=== PATIENT | female | born 1945 | race Caucasian/White ===

== ENCOUNTER → 2017-04-09 | Day surgery (SDC) | payer OTHER, MEDICARE ==
[~2017-04-09] VITALS: Ht 163.8 cm; Wt 58.9 kg
[~2017-04-09] MED LIST: 0.9% Sodium Chloride 1,000 ML IV PRN; ASPI-973 PO; Sodium Chloride LOK Flush 10 mL Syringe IV PRN; [UNRECOGNIZED DRUG - CODE] OP; fentaNYL-PF 50 mCg/mL 2 mL Inj IVPUSH PRN
[2017-04-09 10:23] VITALS: BP 139/82; PULSE 64; RESP 16; O2SAT 100
[2017-04-09 12:28] VITALS: BP 150/82; PULSE 52; RESP 12; O2SAT 100
[2017-04-09 12:37] VITALS: BP 140/74; PULSE 57; RESP 12; O2SAT 100
[2017-04-09 12:51] VITALS: BP 148/80; PULSE 67; RESP 12; O2SAT 100
--- NOTE | 2017-04-10 02:13 | ENDO ---
[address] [address] ENDOSCOPY PROCEDURE PATIENT: LEYDA VALLE : 1945 MR#: [id number] ADMIT: 04/09/2017 JOB ID: [id number] DATE OF SERVICE: INDICATIONS: Melena. Patient's ASA classification is II. Mallampati score is II. MEDICATIONS: 1. Versed at 5 mg. 2. Fentanyl 100 mcg. INSTRUMENT USED: GIF H 180 AL. PROCEDURE DETAILS: After informed consent was obtained, the patient was brought to the GI suite, where she was placed oxygen via nasal cannula and monitored with continuous pulse oximeter, telemetry and blood pressure monitoring. A time-out was performed. Then, she was placed in a left lateral decubitus position and medications were administered for sedation. A bite block was placed. The standard EGD scope was inserted through the bite block and advanced under direct visualization to the second portion of duodenum without difficulty. FINDINGS: 1. Normal appearing duodenal bulb, first and second portion. Multiple random biopsies were obtained. 2. Normal appearing pylorus. In the antrum there were multiple erosions. Multiple random biopsies were obtained. 3. The remainder of the gastric exam revealed normal appearing gastric mucosa. 4. Retroflexed views in the gastric body revealed a normal appearing cardia and fundus. 5. Multiple random biopsies were obtained throughout the gastric body. 6. The GE junction was at approximately 38 cm. The GE junction was slightly irregular. Multiple biopsies were obtained in the distal esophagus. The remainder of the esophageal exam is otherwise unremarkable. IMPRESSION: 1. Multiple antral erosions. 2. Irregular gastroesophageal junction. RECOMMENDATIONS: 1. Await biopsy results. 2. Start omeprazole 20 mg daily. 3. Proceed to colonoscopy. PROCEDURE PERFORMED: Colonoscopy. INDICATION: Melena. Please see above for ASA classification, Mallampati score, and medications. INSTRUMENT USED: PCF H 180 AL. PREP QUALITY: PROCEDURE DETAILS: After completion of the EGD exam, the patient was turned and then a digital rectal exam was performed and it was unremarkable. The colonoscope was then inserted into the rectum and advanced under direct visualization to the terminal ileum which was identified by the presence of the ileocecal valve and villous appearing mucosa of the terminal ileum. Once the terminal ileum was reached, the colonoscope was withdrawn back into the rectum. Mucosa and lumen were examined. In the rectum, retroflexion was performed. Following retroflexion, remaining air in the rectum was suctioned and procedure was completed. FINDINGS: 1. Normal appearing terminal ileum. Multiple random biopsies were obtained. 2. In the cecum just next to the appendiceal orifice, there is an approximately 4 mm sessile polyp that was removed with a cold snare. 3. Multiple random biopsies were obtained throughout the entire colon. 4. The colon had a pigmented appearance consistent with melanosis coli throughout the entire colon. IMPRESSION: 1. Cecal polyp. 2. Melanosis coli. RECOMMENDATIONS: 1. Await polyp pathology results and biopsy results. 2. Follow up in GI clinic. 3. Fiber rich diet. COMPLICATIONS: None. ESTIMATED BLOOD LOSS: Less than 5 mL. Cc: Shelley Dennison in [facility]
--- NOTE | 2017-04-12 17:09 | PATH ---
SURGICAL PATHOLOGY Attending Physician:Peter Allison CASE STATUS: Signed Out PATIENT NAME: LEYDA VALLE PID: [id number] : 1945 DATE COLLECTED:04/09/2017 19:51 SPECIMEN: 1: Duodenum, Biopsy 2: Stomach, Antrum, Biopsy 3: Gastric, Biopsy 4: Esophagus, Biopsy 5: Colon, Polyp 6: Ileum, Biopsy 7: Colon, Biopsy CLINICAL HISTORY: BLACK STOOL 1). DUODENUM BIOPSY 2). ANTRUM EROSION BIOPSY, RULE OUT H PYLORI 3). GASTRIC BIOPSY, RULE OUT H PYLORI 4). DISTAL ESOPHAGUS BIOPSY 5). CECAL POLYP 6). TERMINAL ILEUM BIOPSY 7). RANDOM COLON BIOPSY FINAL DIAGNOSIS: 1. Duodenum, Biopsy: Small bowel mucosa with no diagnostic abnormality. Negative for active inflammation, features of sprue, dysplasia or malignancy. 2. Antrum, Biopsy: Gastric antral mucosa with reactive gastropathy consistent with adjacent erosion. No evidence of Helicobacter organisms on H&E stain. Negative for intestinal metaplasia, dysplasia or malignancy. 3. Stomach, Biopsy: Gastric body mucosa with no diagnostic abnormality. No evidence of Helicobacter organisms on H&E stain. Negative for intestinal metaplasia, dysplasia or malignancy. 4. Distal Esophagus, Biopsy: Columnar mucosa with no diagnostic abnormality. Negative for intestinal metaplasia, dysplasia or malignancy. 5. Cecal Polyp, Biopsy: Tubular adenoma. Melanosis coli. 6. Terminal Ileum, Biopsy: Ileal mucosa with no diagnostic abnormality. Negative for active inflammation, granulomata, dysplasia or malignancy. 7. Random Colon, Biopsies: Colonic mucosa with melanosis coli. Negative for active or microscopic colitis. Negative for granulomata, dysplasia or malignancy. ICD10: K92.1 D12.0 GROSS DESCRIPTION: The specimen is received in seven formalin filled containers labeled with the patient's name. 1). The specimen is labeled "duodenum" and consists of 3 portions of tissue which aggregate to 0.2 x 0.2 x 0.2 CM. The specimen is entirely submitted in cassette 1A. 2). The specimen is labeled "antrum erosion" and consists of a 0.2 x 0.2 x 0.1 CM portion of tissue which is entirely submitted in cassette 2A. 3). The specimen is labeled "gastric" and consists of 2 portions of tissue which aggregate to 0.3 x 0.2 x 0.2 CM. The specimen is entirely submitted in cassette 3A. 4). The specimen is labeled "distal esophagus" and consists of a 0.2 x 0.2 x 0.2 CM portion of tissue which is entirely submitted in cassette 4A. 5). The specimen is labeled "cecal polyp" and consists of 2 portions of tissue which aggregate to 0.2 x 0.1 x 0.1 CM. The specimen is entirely submitted in cassette 5A. 6). The specimen is labeled "terminal ileum" and consists of a 0.2 x 0.2 x 0.2 CM portion of tissue which is entirely submitted in cassette 6A. 7). The specimen is labeled "random colon" and consists of multiple portions of tissue which aggregate to 0.3 x 0.3 x 0.2 CM. The specimen is filtered and entirely submitted in cassette 7A. 04/09/2017DC ICD-9 CODES: CPT CODES: 1: 75304 2: 50128 3: 95538 4: 20307 5: 34327 6: 73734 7: 24429 Electronically Signed Out Parrish Warren MD, Ph.D. [facility] Pathology [facility] [address], [place] [address] Technical component performed at [facility], [facility] [address], [place], [address]
== END | disposition home or self-care (01) ==
LOC: END 00:21
PROVIDERS: ATTEND Internal Medicine Gastroenterology
DX: D12.0 Benign neoplasm of cecum (principal); K31.9 Disease of stomach and duodenum, unspecified; K63.89 Other specified diseases of intestine; K92.1 Melena; R63.4 Abnormal weight loss; K59.00 Constipation, unspecified; Z68.21 Body mass index [BMI] 21.0-21.9, adult
CPT/HCPCS: 43239; 45380; 45385; 99153; G0500; J2250; J3010; J7030